=== PATIENT | female | born 1990 | race Two or more races ===

== ENCOUNTER 2017-03-26 17:17 | Emergency (ER) | payer MEDICAID, OTHER ==
[2017-03-26] MEDS ORDERED: LIDOCAINE 1% INJ-PF (10 MG/ML) 30 ML SDV INJ ONE (17:48)
--- NOTE | 2017-03-26 17:50 | ER Document Report ---
ED Psych Disorder / Suicide - General Mode of Arrival: Medic Information source: Patient TRAVEL OUTSIDE OF THE [place] IN LAST 30 DAYS: No - HPI Patient complains to provider of: Suicidal attempt Onset: Just prior to arrival Onset was: Sudden Quality of pain: No pain Suicide Risk Factors: Depressed Situational problems related to: Spouse Suicide Attempt Method: Stabbing/Cutting Injury to: Wrist - Forearm Associated symptoms: Depressed, Tearful <MATT OLIVAREZ - Last Filed: 03/26/17 23:35> <CHANELLE SCOTT - Last Filed: 03/27/17 00:28> - General Chief Complaint: Psych Problem Stated Complaint: PSYCH EVAL/SUICIDAL IDEATIONS Time Seen by Provider: 03/26/17 17:31 Notes: Patient is a 26-year-old female presenting to the emergency department via EMS after attempting suicide by lacerating her left forearm just prior to arrival. Patient states that she had a fight with her and did "not want to live or do anything anymore." This patient states that she cut herself with a razor blade after her turned his back to her. Patient states that she truly wanted to , she was not trying to get her to turn around. Patient reports having suicidal thoughts in the past, but has never acted on them. Patient also states that she saw a counselor 2 weeks ago secondary to stress, but did not discuss suicidal ideation. Patient denies ever taking any medications for her depression. Patient also mentions experiencing non-acute left leg pain that has been going on for several months, but she has been told that this could be a side-effect of her contraceptive, Nexplanon, which is implanted in her left arm. (MATT OLIVAREZ) - Related Data Allergies/Adverse Reactions: No Known Allergies Allergy (Unverified 12/04/15 05:20) Past Medical History - General Information source: Patient - Social History Smoking Status: Never Smoker Cigarette use (# per day): No Chew tobacco use (# tins/day): No Frequency of alcohol use: Heavy Drug Abuse: Marijuana Lives with: Spouse/Significant other Family History: Reviewed & Not Pertinent Psychiatric Medical History: Reports: Hx Anxiety, Hx Depression, Other - Sleeping Difficulty - Immunizations Hx Diphtheria, Pertussis, Tetanus Vaccination: Yes <MATT OLIVAREZ - Last Filed: 03/26/17 23:35> Review of Systems - Review of Systems Constitutional: No symptoms reported EENT: No symptoms reported Cardiovascular: No symptoms reported. denies: Chest pain Respiratory: No symptoms reported. denies: Short of breath Gastrointestinal: No symptoms reported. denies: Diarrhea, Nausea, Vomiting Genitourinary: No symptoms reported Female Genitourinary: No symptoms reported Musculoskeletal: See HPI, Other - Left leg pain. denies: Leg swelling Skin: No symptoms reported Hematologic/Lymphatic: No symptoms reported Neurological/Psychological: See HPI, Depression, Suicidal ideation -: Yes All other systems reviewed and negative <MATT OLIVAREZ - Last Filed: 03/26/17 23:35> Physical Exam <MATT OLIVAREZ - Last Filed: 03/26/17 23:35> <CHANELLE SCOTT - Last Filed: 03/27/17 00:28> - Vital signs Vitals: Temp Pulse Resp BP Pulse Ox 98.2 F 96 16 129/80 H 97 03/26/17 17:25 03/26/17 17:25 03/26/17 17:25 03/26/17 17:25 03/26/17 17:25 - Notes Notes: GENERAL: Alert, interacts well. No acute distress. HEAD: Normocephalic, atraumatic. EYES: Pupils equal, round, and reactive to light. Extraocular movements intact. ENT: Oral mucosa moist, tongue midline. NECK: Full range of motion. Supple. Trachea midline. LUNGS: Clear to auscultation bilaterally, no wheezes, rales, or rhonchi. No respiratory distress. HEART: Regular rate and rhythm. No murmurs, gallops, or rubs. ABDOMEN: Soft, non-tender. Non-distended. Bowel sounds present in all 4 quadrants. EXTREMITIES: Moves all 4 extremities spontaneously. No edema, radial and dorsalis pedis pulses 2/4 bilaterally. No cyanosis. NEUROLOGICAL: Alert and oriented x3. Normal speech. PSYCH: Depressed, tearful. SKIN: Warm, dry, normal turgor. 9 cm linear laceration to the volar aspect of the left forearm. Edges are superficial, 6 cm middle of lac into subcutaneous tissue with venous blood seeping. (MATT OLIVAREZ) Course - Laboratory Result Diagrams: 03/26/17 18:00 03/26/17 18:00 <MATT OLIVAREZ - Last Filed: 03/26/17 23:35> - Laboratory Result Diagrams: 03/26/17 18:00 03/26/17 18:00 <CHANELLE SCOTT - Last Filed: 03/27/17 00:28> - Re-evaluation Re-evalutation: 03/26/17 23:46 CBC unremarkable, CMP shows slightly low sodium at 21 otherwise unremarkable, urinalysis has small blood no signs of infection, test is negative, urine drug screen is negative, salicylates, acetaminophen and alcohol are all undetectable. Patient is medically cleared. Patient will be seen by mental health in the morning. 03/26/17 23:47 (CHANELLE SCOTT) - Vital Signs Vital signs: Temp Pulse Resp BP Pulse Ox 98.2 F 96 16 129/80 H 97 03/26/17 17:25 03/26/17 17:25 03/26/17 17:25 03/26/17 17:25 03/26/17 17:25 - Laboratory Laboratory results interpreted by me: 03/26/17 03/26/17 18:00 18:00 Carbon Dioxide 21 L Urine Protein 30 H Urine Blood SMALL H Salicylates < 1.0 L Acetaminophen < 10 L - EKG Interpretation by Me Additional EKG results interpreted by me: 03/26/17 23:47 EKG shows sinus rhythm at a rate of 95, normal axis, normal intervals, no ST segment elevations or depressions, there are T-wave inversions in lead III per my interpretation. (CHANELLE SCOTT) Procedures - Laceration/Wound Repair Left Volar Arm Time completed: 21:05 Wound length (cm): 9 Wound's Depth, Shape: Linear Laceration pre-procedure: Sterile PPE donned, [place] applied Anesthetic type: 1% Lidocaine Volume Anesthetic (mLs): 7 Wound Repaired With: Sutures Suture Size/Type: 5:0, Ethilon Number of Sutures: 21 - 19 running, 2 horizontal mattress Layer Closure?: No Post-procedure wound care: Sterile dressing applied Post-procedure NV exam normal: Yes Complications: No <MATT OLIVAREZ - Last Filed: 03/26/17 23:35> Discharge <MATT OLIVAREZ - Last Filed: 03/26/17 23:35> <CHANELLE SCOTT - Last Filed: 03/27/17 00:28> - Discharge Clinical Impression: Depression with suicidal ideation, Attempted suicide Laceration of left forearm Qualifiers: Encounter type: initial encounter Qualified Code(s): S51.812A - Laceration without foreign body of left forearm, initial encounter Condition: Stable Disposition: PSYCH HOSP/UNIT Scribe Attestation: 03/27/17 00:28 I personally performed the services described in the documentation, reviewed and edited the documentation which was dictated to the scribe in my presence, and it accurately records my words and actions. (CHANELLE SCOTT) Scribe Documentation - Scribe Written by Jessica:: Jessica Monae, 03/26/2017 [id number] acting as scribe for :: Bianca <MATT OLIVAREZ - Last Filed: 03/26/17 23:35>
[2017-03-26 18:20] LABS: ABSOLUTE EOSINOPHILS # (AUTO) 0.1 10^3/uL (0.0-0.6); ABSOLUTE MONOCYTES (AUTO) 0.7 10^3/uL (0.1-1.4); ABSOLUTE NEUT (AUTO) 6.2 10^3/uL (1.7-8.2); BASOPHILS % (AUTO) 0.4 % (0-2); EOSINOPHILS % (AUTO) 0.9 % (0-6); HEMATOCRIT 40.9 % (36.0-47.0); HEMOGLOBIN 13.6 g/dL (12.0-15.5); HGB HCT DIFFERENCE -0.1; LYMPHOCYTES % (AUTO) 22.2 % (13-45); MEAN CORPUSCULAR HEMOGLOBIN 29.7 pg (27.0-33.4); MEAN CORPUSCULAR HGB CONC 33.3 g/dL (32.0-36.0); MEAN CORPUSCULAR VOLUME 89 fl (80-97); MONOCYTES % (AUTO) 7.9 % (3-13); RED BLOOD COUNT 4.59 10^6/uL (3.72-5.28); RED CELL DISTRIBUTION WIDTH 13.4 % (11.5-14.0); SEGMENTED NEUTROPHILS % (AUTO) 68.6 % (42-78)
[2017-03-26 18:34] LABS: ALANINE AMINOTRANSFERASE 32 U/L (9-52); ALBUMIN 4.6 g/dL (3.5-5.0); ALKALINE PHOSPHATASE 93 U/L (38-126); ANION GAP 15 (5-19); ASPARTATE AMINO TRANSFERASE 24 U/L (14-36); BILIRUBIN,DIRECT 0.2 mg/dL (0.0-0.4); BILIRUBIN,TOTAL 0.9 mg/dL (0.2-1.3); BLOOD UREA NITROGEN 11 mg/dL (7-20); CARBON DIOXIDE 21 mmol/L (22-30); CHLORIDE 105 mmol/L (98-107); CREATININE RESULT 0.67 mg/dL (0.52-1.25); GLUCOSE 92 mg/dL (75-110); POTASSIUM 3.8 mmol/L (3.6-5.0); SODIUM 140.9 mmol/L (137-145); TOTAL PROTEIN 7.5 g/dL (6.3-8.2)
[2017-03-26 18:36] LABS: ALCOHOL < 10 mg/dL (NONE DETECTED)
--- NOTE | 2017-03-26 18:40 | EKG REPORT ---
SEVERITY:- NORMAL ECG - SINUS RHYTHM : Confirmed by: Mj Dennison MD 26-Mar-2017 18:39:28
[2017-03-26 18:50] LABS: APPEARANCE,URINE SLIGHTLY-CLOUDY; BILIRUBIN,URINE NEGATIVE (NEGATIVE); GLUCOSE, URINE NEGATIVE (NEGATIVE); KETONES,URINE NEGATIVE (NEGATIVE); LEUKOCYTE ESTERASE,URINE NEGATIVE (NEGATIVE); NITRITE,URINE NEGATIVE (NEGATIVE); PROTEIN,URINE 30 mg/dL (NEGATIVE); URINE SPECIFIC GRAVITY 1.024; UROBILINOGEN,URINE NEGATIVE mg/dL (<2.0)
[2017-03-26 19:00] LABS: URINE BARBITURATES SCREEN NEGATIVE; URINE METHADONE SCREEN NEGATIVE; URINE OPIATES LOW NEGATIVE; URINE PHENCYCLIDINE SCREEN NEGATIVE
--- NOTE | 2017-03-27 09:22 | ER Document Report ---
Doctor's Note Notes: 03/27/17 09:22 Patient evaluated at bedside, resting comfortably on stretcher, no needs at this time, chart and lab findings were reviewed as well as vital signs, pending plan and disposition per mental health
--- NOTE | 2017-03-27 10:42 | PSYCHOLOGICAL NOTE ---
Psych Note - Psych Note Psych Note: Patient is a 26-year-old female presenting to the emergency department via EMS after attempting suicide by lacerating her left forearm just prior to arrival. Patient states that she had a fight with her and did "not want to live or do anything anymore." This patient states that she cut herself with a razor blade after her turned his back to her. Patient states that she truly wanted to , she was not trying to get her to turn around. Patient reports having suicidal thoughts in the past, but has never acted on them. Patient also states that she saw a counselor 2 weeks ago secondary to stress, but did not discuss suicidal ideation. Patient denies ever taking any medications for her depression Patient disclosed there is "too much going on." Patient has been going through marital discord and yesterday it was decided they were going to be going through a divorce. She continued disclosed that she does not remember cutting herself. Stating "it just happened like my body did not I was not thinking." She continued disclosed that when she realized that she had cut herself she just kept looking at it and repeat visually repeating seeing her cut herself over in her head. Patient disclosed that she remembers thinking that she did not want to be a single parent because she is not strong enough. She continued to state that her has the strength and he could do it." Patient states she is gone to approximately 3 sessions with her therapist at [facility]. Patient denies previous attempt. Patient denies taking any medications. Patient is alert and orientated to person place time and circumstance. Mood is dysphoric with restricted affect. Patient endorses suicidal ideation with attempt. Per physician report patient sustained "9 cm linear laceration to the volar aspect of the left forearm. Edges are superficial, 6 cm middle of lac into subcutaneous tissue with venous blood seeping" which required stitches. Patient denies homicidal ideation. Patient denies auditory visual hallucinations; patient is not congruent to responding to no delusions are noted. Thought process is organized. Thought content is slightly guarded. Cognition of speech was within normal rate tone and prosody. Eye contact was good. Intellectual abilities appear to be within average range. Attention and concentration are good. Insight, judgment, impulse control are poor. 311 (F32.9) unspecified depressive disorder Impression\\plan: Patient is recommended to continue under IVC and is recommended for inpatient psychiatric treatment. Patient denies any previous history of suicidal ideation or attempts. Patient denies having any mental health concerns other than mild depression diagnosed at 16 year old. Patient presented after significant suicidal attempt with a cut going up her forearm requiring stitches. Dr. Edwards was consulted on the care and management of this patient; attending physician is in agreement with recommendations and disposition.
[2017-03-27] MEDS ORDERED: CITALOPRAM HYDROBROMIDE 20 MG TABLET PO SCH (11:00)
[2017-03-27 11:31] VITALS: BP 113/69
== END 2017-03-27 12:15 ==
LOC: ER 17:17
PROC: 0HQEXZZ Repair Left Lower Arm Skin, External Approach (ICD-10-PCS; principal; 2017-03-26)
DX: S51.812A Laceration without foreign body of left forearm, initial encounter (principal); X78.8XXA Intentional self-harm by other sharp object, initial encounter; Y92.009 Unspecified place in unspecified non-institutional (private) residence as the place of occurrence of the external cause; F32.9 Major depressive disorder, single episode, unspecified; M79.605 Pain in left leg; Z97.5 Presence of (intrauterine) contraceptive device
CPT/HCPCS: 12004; 93005; 99285; 36415; 80307 ×4; 85025; 81025; 80053; 81001; 93010; J3490

== ENCOUNTER 2017-09-14 21:04 | Emergency (ER) | payer OTHER ==
--- NOTE | 2017-09-14 23:11 | ER Document Report ---
ED Neck/Back Problem - General Chief Complaint: Back Pain Stated Complaint: BACK PAIN Time Seen by Provider: 09/14/17 23:01 Mode of Arrival: Ambulatory Information source: Patient Notes: 27-year-old female presents to ED for complaint of left-sided back pain that started Thursday lasted for about 2 hours and then tonight it started about 8: 00 tonight and is still going on. She states it goes around to the front sometimes. She has Implanon that she has had since March. She states she had a. In June and then where she had some weird spotting 2 weeks ago. She states she does not know of any injury she could have had except for lifting her son who weighs 28 pounds. TRAVEL OUTSIDE OF THE [place] IN LAST 30 DAYS: No - HPI Patient complains to provider of: Lower back - Her Onset: Other - Thursday Where: Home Onset: Gradual Timing: Still present Quality of pain: Sharp Severity: Severe Pain Level: 5 Recent injury: No Associated symptoms: Lower back pain - Left flank Similar symptoms previously: Yes - Thursday Recently seen / treated by doctor: No - Related Data Allergies/Adverse Reactions: No Known Allergies Allergy (Unverified 12/04/15 05:20) Past Medical History - General Information source: Patient - Social History Smoking Status: Current Some Day Smoker - Maybe 2 times a week Cigarette use (# per day): Yes - 2 times a week Chew tobacco use (# tins/day): No Smoking Education Provided: Yes - Less than 1 minute Frequency of alcohol use: Social - 2 times a week Drug Abuse: None Occupation: Housewife Lives with: Family Family History: Reviewed & Not Pertinent Patient has suicidal ideation: No Patient has homicidal ideation: No - Past Medical History Cardiac Medical History: Reports: None Pulmonary Medical History: Reports: None EENT Medical History: Reports: None Neurological Medical History: Reports: None Endocrine Medical History: Reports: None Renal/ Medical History: Reports: None Malignancy Medical History: Reports: None GI Medical History: Reports: None Musculoskeltal Medical History: Reports None Skin Medical History: Reports None Psychiatric Medical History: Reports: Hx Anxiety, Hx Depression Traumatic Medical History: Reports: None Infectious Medical History: Reports: None Surgical Hx: Negative Past Surgical History: Reports: None - Immunizations Hx Diphtheria, Pertussis, Tetanus Vaccination: Yes Review of Systems - Review of Systems Constitutional: No symptoms reported EENT: No symptoms reported Cardiovascular: No symptoms reported Respiratory: No symptoms reported Gastrointestinal: No symptoms reported Genitourinary: Flank pain - Flank pain Female Genitourinary: No symptoms reported Musculoskeletal: No symptoms reported, Back pain, Muscle pain Skin: No symptoms reported Hematologic/Lymphatic: No symptoms reported Neurological/Psychological: No symptoms reported Physical Exam - Vital signs Vitals: Temp Pulse Resp BP Pulse Ox 97.6 F 107 H 16 132/91 H 99 09/14/17 21:09 09/14/17 21:09 09/14/17 21:09 09/14/17 21:09 09/14/17 21:09 Interpretation: Normal - General General appearance: Appears well, Alert - HEENT Head: Normocephalic, Atraumatic Eyes: Normal Pupils: PERRL - Respiratory Respiratory status: No respiratory distress Chest status: Nontender Breath sounds: Normal Chest palpation: Normal - Cardiovascular Rhythm: Regular Heart sounds: Normal auscultation Murmur: No - Abdominal Inspection: Normal Distension: No distension Bowel sounds: Normal Tenderness: Nontender Organomegaly: No organomegaly - Back Back: Normal, Tender, CVA tenderness - Left - Extremities General upper extremity: Normal inspection, Nontender, Normal color, Normal ROM , Normal temperature General lower extremity: Normal inspection, Nontender, Normal color, Normal ROM , Normal temperature, Normal weight bearing. No: Navin's sign - Neurological Neuro grossly intact: Yes Cognition: Normal Orientation: AAOx4 [place] Coma Scale Eye Opening: Spontaneous Moises Coma Scale Verbal: Oriented Moises Coma Scale Motor: Obeys Commands Moises Coma Scale Total: 15 Speech: Normal Motor strength normal: LUE, RUE, LLE, RLE Sensory: Normal - Psychological Associated symptoms: Normal affect, Normal mood - Skin Skin Temperature: Warm Skin Moisture: Dry Skin Color: Normal Course - Re-evaluation Re-evalutation: 09/15/17 01:[address] results with patient and patient was treated with Toradol [place] dispense pack Zofran dispense back and Flomax in the emergency room and discharged home with prescription for Flomax and [place]. Patient was given the name and number of the [facility] urology for follow-up. - Vital Signs Vital signs: Temp Pulse Resp BP Pulse Ox 97.6 F 107 H 16 132/91 H 99 09/14/17 21:09 09/14/17 21:09 09/14/17 21:09 09/14/17 21:09 09/14/17 21:09 - Laboratory Laboratory results interpreted by me: 09/14/17 23:20 Urine Protein 100 H Urine Blood LARGE H - Diagnostic Test Radiology reviewed: Image reviewed, Reports reviewed Discharge - Discharge Clinical Impression: Ureteral calculi Condition: Stable Disposition: HOME, SELF-CARE Additional Instructions: KIDNEY STONE: You are passing or have passed a kidney stone. These stones are usually due to increased calcium or uric acid concentrations in your urine. Stones within the kidney itself are not painful. The pain occurs as the stone leaves the kidney to pass down the long tube, called the ureter, leading to the bladder. If the stone is small, it will usually pass by itself. Most patients can pass the stone at home. You will usually receive medications for pain, nausea or vomiting, and sometimes a medication to assist in passing the kidney stone. However, if the pain is very severe or if vomiting prevents you from taking oral pain medications, you may need to return for further treatment. Drink three or four quarts of fluids per day. You will be given pain medication (if needed) and urine strainers. Strain all your urine to see if the stone passes. If your doctor has asked you to bring the stone in for analysis, return with the stone once it has passed. Return if pain or vomiting become severe, if you develop a high fever, if you are unable to pass your urine, or if other unusual symptoms occur. ANTINAUSEA MEDICATION: You have been given a medication to suppress nausea and vomiting. This type of medication can be given as a shot, pill, or suppository. It will usually last for many hours. Pills and shots usually last six to eight hours, suppositories last about 12 hours. For the typical illness, only one or two doses of the medication may be necessary. Mild lightheadedness may occur. This type of medicine can cause drowsiness. Do not drive or operate dangerous machinery while under its influence. Do not mix with alcohol. See your doctor at once if you have muscle spasms or tightness, or uncontrollable motions (particularly of the neck, mouth, or jaw). Persistent vomiting or severe lightheadedness should also be evaluated by the physician. ORAL NARCOTIC MEDICATION: You have been given a prescription for pain control. This medication is a narcotic. It's best taken with food, as nausea can result if taken on an empty stomach. Don't operate machinery or drive within six hours of taking this medication. Do not combine this medicine with alcohol, or with any medication which can cause sedation (such as cold tablets or sleeping pills) unless you get permission from the physician. Narcotics tend to cause constipation. If possible, drink plenty of fluids and eat a diet high in fiber and fruits. Please be aware that prescription narcotics also have the potential for abuse. People become addicted to these medications because of the general sense of wellbeing that they induce. This feeling along with a significant reduction in tension, anxiety, and aggression provides a stimulating seductive quality to these drugs. Once your pain is under control, we encourage you to discard your unused narcotics. FLOMAX (tamsulosin): Flomax is a medicine that shrinks the prostate gland. It helps relieve symptoms of benign prostatic hypertrophy, such as frequent urination, weak stream, and inadequate emptying. It has been shown to dilate the ureter (tube leading from the kidney to the bladder) and help in passing kidney stones Flomax usually causes no side effects. You may notice slight tiredness and dizziness for a few days. Some patients develop nasal congestion. Rarely, impotence can occur. If the symptoms are bothersome and don't improve with continued use, call your doctor. Contact your doctor or return if you have fainting spells, severe weakness or dizziness, shortness of breath, or rash. FOLLOW-UP CARE: If you have been referred to a physician for follow-up care, call the physician s office for an appointment as you were instructed or within the next two days. If you experience worsening or a significant change in your symptoms, notify the physician immediately or return to the Emergency Department at any time for re-evaluation. Prescriptions: Hydrocodone/Acetaminophen [[place] 5-325 mg Tablet] 1 tab PO Q6HP PRN #14 tablet PRN Reason: Tamsulosin HCl [Flomax] 0.4 mg PO DAILY #14 cap.er.24h Forms: Elevated Blood Pressure Referrals: YANDEL PARKER MD [Primary Care Provider] - Follow up as needed
[2017-09-15] LABS: APPEARANCE,URINE CLOUDY; BILIRUBIN,URINE NEGATIVE (NEGATIVE); CALCIUM OXALATE CRYSTALS,URINE MODERATE /HPF; GLUCOSE, URINE NEGATIVE (NEGATIVE); KETONES,URINE NEGATIVE (NEGATIVE); LEUKOCYTE ESTERASE,URINE NEGATIVE (NEGATIVE); NITRITE,URINE NEGATIVE (NEGATIVE); PROTEIN,URINE 100 mg/dL (NEGATIVE); URINE SPECIFIC GRAVITY 1.029; UROBILINOGEN,URINE NEGATIVE mg/dL (<2.0)
--- NOTE | 2017-09-15 01:34 | RADIOLOGY REPORT (SQ) ---
EXAM DESCRIPTION: CT ABDOMEN AND PELVIS WITHOUT CONTRAST CLINICAL HISTORY: left flank pain COMPARISON: None Available. TECHNIQUE: CT of the abdomen and pelvis without IV contrast. FINDINGS: Abdomen: The liver has normal size and density. No calcified gallstones. The spleen, pancreas, and adrenal glands are unremarkable. There is an 8 mm distal left ureteral calculus producing moderate left hydroureter and hydronephrosis. No right hydronephrosis. The aorta and IVC have normal caliber and position. No free intraperitoneal air. The stomach and duodenum have normal course. Pelvis: Uterus and ovaries are not enlarged. Urinary bladder is unremarkable. No free pelvic fluid or lymphadenopathy. No dilated loops of large or small bowel. Normal appendix. The visualized lung bases are clear. No destructive bone lesions identified. DLP: 634.16 mGy-cm IMPRESSION: 1. There is an 8 mm obstructing calculus in the distal left ureter producing moderate left hydroureter and hydronephrosis. This exam was performed according to our departmental dose-optimization program, which includes automated exposure control, adjustment of the mA and/or kV according to patient size and/or use of iterative reconstruction technique.
[2017-09-15] MEDS ORDERED: ONDANSETRON ODT 4 MG TAB (6 TAB/DSPK) PO PRN (01:49)
[2017-09-15] MEDS ORDERED: HYDROCODONE/ACETAMINOPHEN 5-325 MG 6 TAB/DSPK PO PRN (01:49)
[2017-09-15] MEDS ORDERED: TAMSULOSIN HCL 0.4 MG CAP.SR.24H PO ONE (01:49)
[2017-09-15] MEDS ORDERED: KETOROLAC TROMETHAMINE 60 MG/2 ML SDV IM ONE (01:52)
[2017-09-15 02:10] VITALS: BP 120/86
== END 2017-09-15 02:15 | disposition home or self-care (01) ==
LOC: ER 21:04
DX: N20.1 Calculus of ureter (principal); M54.9 Dorsalgia, unspecified; F17.210 Nicotine dependence, cigarettes, uncomplicated
CPT/HCPCS: 99284; 96372; 81025; 81001; 76380; J1885